=== PATIENT | female | born 1980 | race Caucasian/White ===

== ENCOUNTER 2017-11-16 18:33 | Emergency (ER) | payer SELFPAY ==
[~2017-11-16] VITALS: Ht 160 cm; Wt 60.8 kg
[2017-11-16 18:42] VITALS: BP 126/68
--- NOTE | 2017-11-16 19:35 | NUR ---
PT REFUSED WOUND. RISK AND BENEFITS EXPLAINED X3. PT STRONGY REFUSED. SUZAN KING MADE AWARE.
--- NOTE | 2017-11-16 19:39 | NUR ---
PT REFUSED CARE. RISK AND BENEFITS EXPLAINED X3. PT STRONGLY REFUSED. PT ALSO REFUSED LEFT FOOT WRAP. SUZAN KING MADE AWARE
== END 2017-11-16 21:00 | disposition home or self-care (01) ==
LOC: ER 20:04
DX: S90.822A Blister (nonthermal), left foot, initial encounter (principal); Z59.0 Homelessness; X58.XXXA Exposure to other specified factors, initial encounter; Y93.01 Activity, walking, marching and hiking; Y92.89 Other specified places as the place of occurrence of the external cause; Y99.8 Other external cause status
CPT/HCPCS: A4217; A4606; Z7610